=== PATIENT | male | born 1980 | race Caucasian/White ===

== ENCOUNTER 2016-12-31 00:36 | Emergency (ER) | payer OTHER ==
[2016-12-31] MEDS ORDERED: CATAPRES ONE (01:04)
[2016-12-31] MEDS ORDERED: CATAPRES PO ONE (01:10)
[2016-12-31 02:23] VITALS: BP 126/85
--- NOTE | 2016-12-31 03:21 | Emergency Department Report ---
- General Chief Complaint: Puncture Wound Stated Complaint: RT FOOT INJURY Source: patient Mode of arrival: Ambulatory Limitations: Language Barrier - History of Present Illness Initial Comments: Patient comes in today with complaints of a puncture wound to his right foot while at work this evening. Patient states that he was wearing his work boots and a nail apparently went through the bottom of his boot into his foot. Patient states injury happened approximately 5 hours prior to arrival. Patient states that immunizations are up-to-date. Patient denies any other complaints. Patient does state that the entire nail did come out. - Related Data Previous Rx's Medication Instructions Recorded Last Taken Type Amoxicillin/K Clav Tab [Augmentin 1 tab PO Q12HR #20 tab 12/31/16 Unknown Rx 875 mg] traMADol [Ultram] 50 mg PO Q4HR PRN #20 tablet 12/31/16 Unknown Rx Allergies Allergy/AdvReac Type Severity Reaction Status Date / Time No Known Allergies Allergy Unverified 12/31/16 01:10 ED Review of Systems ROS: Stated complaint: RT FOOT INJURY Other details as noted in HPI Constitutional: denies: chills, fever Eyes: denies: eye pain, eye discharge, vision change ENT: denies: ear pain, throat pain Respiratory: denies: cough, shortness of breath, wheezing Cardiovascular: denies: chest pain, palpitations Endocrine: no symptoms reported Gastrointestinal: denies: abdominal pain, nausea, diarrhea Genitourinary: denies: urgency, dysuria Musculoskeletal: denies: back pain, joint swelling, arthralgia Skin: denies: rash, lesions Neurological: denies: headache, weakness, paresthesias Psychiatric: denies: anxiety, depression Hematological/Lymphatic: denies: easy bleeding, easy bruising ED Past Medical Hx - Past Medical History Hx Hypertension: Yes - Surgical History Past Surgical History?: No - Social History Smoking Status: Never Smoker Substance Use Type: None - Medications Home Medications: Home Medications Medication Instructions Recorded Confirmed Last Taken Type Amoxicillin/K Clav Tab [Augmentin 1 tab PO Q12HR #20 tab 12/31/16 Unknown Rx 875 mg] traMADol [Ultram] 50 mg PO Q4HR PRN #20 tablet 12/31/16 Unknown Rx ED Physical Exam - General Limitations: Language Barrier General appearance: alert, in no apparent distress - Head Head exam: Present: atraumatic, normocephalic - Eye Eye exam: Present: normal appearance - ENT ENT exam: Present: mucous membranes moist - Neck Neck exam: Present: normal inspection - Respiratory Respiratory exam: Present: normal lung sounds bilaterally. Absent: respiratory distress - Cardiovascular Cardiovascular Exam: Present: regular rate, normal rhythm. Absent: systolic murmur, diastolic murmur, rubs, gallop - GI/Abdominal GI/Abdominal exam: Absent: distended - Rectal Rectal exam: Present: deferred - Extremities Exam Extremities exam: Present: tenderness, normal capillary refill, other ( superficial puncture wound noted to midline distal right plantar foot. No visible foreign body noted. Puncture wound measures approximately 2 mm. Patient is neurovascularly intact distally.). Absent: pedal edema, joint swelling, calf tenderness - Back Exam Back exam: Present: normal inspection - Neurological Exam Neurological exam: Present: alert, oriented X3 - Psychiatric Psychiatric exam: Present: normal affect, normal mood - Skin Skin exam: Present: warm, dry, intact, normal color. Absent: rash ED Course Vital Signs 12/31/16 12/31/16 12/31/16 01:07 01:11 02:22 Temperature 98.2 F Pulse Rate 76 76 82 Respiratory 18 Rate Blood Pressure 181/111 181/111 Blood Pressure 126/85 [Left] O2 Sat by Pulse 99 98 Oximetry ED Medical Decision Making - Medical Decision Making Patient is nontoxic and hemodynamically stable. Upon initial evaluation in triage patient was found to have elevated blood pressure. Patient was given 0.2 clonidine by mouth in triage with improvement in blood pressure. Patient states that he has not been taking his blood pressure medicine regularly and I have encouraged patient to do so in the future. No wound closure is required to patient's puncture wound. I instructed patient on proper care of puncture wound. I will start patient on some antibiotics as well as prescribed pain medications as needed. Patient is stable for discharge and is agreement with treatment plan. Critical care attestation.: If time is entered above; I have spent that time in minutes in the direct care of this critically ill patient, excluding procedure time. ED Disposition Clinical Impression: Puncture wound of plantar aspect of right foot, Elevated blood pressure reading Disposition: DISCHARGED TO HOME OR SELFCARE Is pt being admited?: No Does the pt Need Aspirin: No Condition: Good Instructions: Puncture Wound (ED), Chronic Hypertension (ED) Prescriptions: Amoxicillin/K Clav Tab [Augmentin 875 mg] 1 tab PO Q12HR #20 tab traMADol [Ultram] 50 mg PO Q4HR PRN #20 tablet PRN Reason: Pain Referrals: PRIMARY CARE,MD [Primary Care Provider] - 3-5 Days Forms: Work/School Release Form(ED) Time of Disposition: 03:28 Print Language: TAJIK
== END 2016-12-31 03:36 | disposition home or self-care (01) ==
LOC: ED 00:36
DX: S91.331A Puncture wound without foreign body, right foot, initial encounter (principal); I10 Essential (primary) hypertension; X58.XXXA Exposure to other specified factors, initial encounter; Y93.9 Activity, unspecified; Y92.9 Unspecified place or not applicable; Y99.9 Unspecified external cause status
CPT/HCPCS: 99282